=== PATIENT | female | born 1995 | race Hispanic/Latino ===

== ENCOUNTER 2021-04-04 00:50 | Emergency (ER) | payer SELFPAY ==
[2021-04-04 03:56] VITALS: BP 107/60
== END 2021-04-04 06:20 | disposition left against medical advice (07) ==
LOC: ED 00:50
DX: S09.90XA Unspecified injury of head, initial encounter (principal); Z53.21 Procedure and treatment not carried out due to patient leaving prior to being seen by health care provider; Y08.89XA Assault by other specified means, initial encounter; Y93.89 Activity, other specified; Y92.89 Other specified places as the place of occurrence of the external cause; Y99.8 Other external cause status

== ENCOUNTER 2021-04-05 22:45 | Emergency (ER) | payer SELFPAY ==
[2021-04-05 22:58] VITALS: BP 133/70
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
== END 2021-04-06 01:05 | disposition home or self-care (01) ==
LOC: ED 22:45
DX: S09.90XA Unspecified injury of head, initial encounter (principal); Z88.8 Allergy status to other drugs, medicaments and biological substances; F17.200 Nicotine dependence, unspecified, uncomplicated; F41.9 Anxiety disorder, unspecified; X58.XXXA Exposure to other specified factors, initial encounter; Y93.89 Activity, other specified; Y92.89 Other specified places as the place of occurrence of the external cause; Y99.8 Other external cause status
CPT/HCPCS: 70450; 99283